=== PATIENT | male | born 1990 | race Caucasian/White ===

== ENCOUNTER 2016-12-27 17:35 | Emergency (ER) | payer MEDICAID ==
--- NOTE | 2017-01-07 07:12 | ER ---
ADMIT: 12/27/2016 RM/LOC: ER [facility] MR#: [id number] [address] [place] [address] Emergency Room Report SEX: M AGE: 26 : 1990 DATE: 12/27/2016 ADDENDUM: CHIEF COMPLAINT: Fever, nausea, vomiting, and diarrhea. HISTORY OF PRESENT ILLNESS: This is a 26-year-old who presents with a fever of 103.1. It is really actually hard to get information out of him. When asking if he has had a cough, he says sometimes. I asked him if he had a cough recently, he said maybe. He has also said he has vomited a couple of times. He also had diarrhea a couple of times. Mom has not given him any Motrin or Tylenol. We did give him Tylenol here in the emergency room which brought his fever down into the 90s. I am sending him home. They feel comfortable going home. He was not able to give a urine here, but I told him it is very important that he give a urine sample tomorrow if he still has a fever. He denies any urinary complaints. He denies ever having any urinary tract infection. CLINICAL IMPRESSION: Fever with vomiting and diarrhea. DISPOSITION: I told him to push fluids. Follow up tomorrow as scheduled with their primary care physician and continue to use Motrin and Tylenol for fever. TAO Garzon / Kamari Lucero MD / luiz JOB #: [id number] CC: Jamshid Zhang MD, Attending Physician Rudi Headley MD, Family Physician
== END 2016-12-27 19:40 | disposition home or self-care (01) ==
LOC: ER 17:35
DX: R50.9 Fever, unspecified (principal); R19.7 Diarrhea, unspecified; R11.10 Vomiting, unspecified; Z79.899 Other long term (current) drug therapy

== ENCOUNTER 2017-01-01 17:27 | Emergency (ER) | payer MEDICAID ==
--- NOTE | 2017-01-02 | ER ---
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 Recent imaging tests, diagnostic blood work, all of which have been negative. Returns today with consistent pain, intermittent fever, nausea. Denies any hematochezia or vomiting, urinary symptoms or cough. Exam remarkable for nontoxic, afebrile male with stigmata of congenital anomaly, obvious static encephalopathy. Exam otherwise unremarkable. Hemoglobin 11.8 down from 13.5, several years ago. Normal CMP. Lipase negative. Nonreactive H pylori. Recommended to mother and patient followup with Dr. Headley for possible EGD or other imaging tests. Navi Barbosa MD/ luiz JOB #: [id number] CC: Jamshid Zhang MD, Attending Physician Rudi Headley MD, Family Physician Rudi Headley MD
== END 2017-01-01 19:50 | disposition home or self-care (01) ==
LOC: ER 17:27
DX: K21.9 Gastro-esophageal reflux disease without esophagitis (principal); Z98.890 Other specified postprocedural states; Z88.5 Allergy status to narcotic agent; Z79.899 Other long term (current) drug therapy

== ENCOUNTER → 2017-01-06 | Outpatient (CLI) | payer MEDICAID | END | disposition home or self-care (01) | LOC: RAD.S 13:11 | DX: R10.9 Unspecified abdominal pain (principal) ==

== ENCOUNTER → 2017-01-09 | Outpatient (CLI) | payer MEDICAID | END | disposition home or self-care (01) | LOC: RAD.S 09:00 | DX: R10.9 Unspecified abdominal pain (principal); R35.0 Frequency of micturition; N28.1 Cyst of kidney, acquired ==